=== PATIENT | male | born 2000 | race Caucasian/White ===

== ENCOUNTER 2021-12-06 18:45 | Emergency (ER) | payer OTHER ==
[2021-12-06] MEDS ORDERED: Morphine 4 MG/ML VIAL ONE ×2 (20:55→21:57)
[2021-12-06] MEDS ORDERED: Morphine 2 MG/ML VIAL ONE (21:57)
[2021-12-06] MEDS ORDERED: PROPOFOL 20 ML ONE (22:21)
== END 2021-12-07 00:22 | disposition home or self-care (01) ==
LOC: ERS 18:45
DX: S43.015A Anterior dislocation of left humerus, initial encounter (principal); W11.XXXA Fall on and from ladder, initial encounter; Y92.69 Other specified industrial and construction area as the place of occurrence of the external cause
CPT/HCPCS: 23650; 96374; 96376; 99152; J2270; J2704